=== PATIENT | female | born 1930 | race Caucasian/White ===

== ENCOUNTER → 2017-10-08 | Outpatient (CLI) | payer MEDICARE, OTHER ==
[~2017-10-08] MED LIST: ASPI325 PO; CALCIUM-FOLIC1 EACH PO; FISH1000 PO; HYDR1TAB94 PO; LEVSOD125 PO; VITAMIN D PO
== END | disposition home or self-care (01) ==
LOC: LAB 13:32
DX: N39.0 Urinary tract infection, site not specified (principal)
CPT/HCPCS: 87077; 87086; 87186

== ENCOUNTER → 2017-10-23 | Outpatient (CLI) | payer MEDICARE, OTHER | END | disposition home or self-care (01) | LOC: LAB 12:35 | DX: N39.0 Urinary tract infection, site not specified (principal) | CPT/HCPCS: 87077; 87086; 87186 ==

== ENCOUNTER → 2018-01-05 | Outpatient (CLI) | payer MEDICARE, OTHER | END | disposition home or self-care (01) | LOC: LAB 17:03 → LAB SHORT 17:03 | DX: N39.0 Urinary tract infection, site not specified (principal) | CPT/HCPCS: 87077; 87086; 87186 ==

== ENCOUNTER → 2018-09-10 | Outpatient (CLI) | payer MEDICARE, OTHER ==
[2018-09-14 15:07] LABS: HPV 16 Negative (Negative); HPV 18 Negative (Negative); HPV OTHER HR TYPES Negative (Negative)
== END | disposition home or self-care (01) ==
LOC: LAB 18:03 → LAB SHORT 18:03
PROVIDERS: Nurse Practitioner Women's Health
DX: Z12.4 Encounter for screening for malignant neoplasm of cervix (principal)
CPT/HCPCS: 87624; G0123

== ENCOUNTER → 2018-10-16 | Outpatient (CLI) | payer MEDICARE, OTHER | END | disposition home or self-care (01) | LOC: LAB SHORT 11:54 → LAB 11:54 | DX: N76.0 Acute vaginitis (principal) | CPT/HCPCS: 81001; 87070; 87077; 87086; 87186; 87205 ==

== ENCOUNTER → 2018-12-24 | Outpatient (CLI) | payer MEDICARE, OTHER | LOC: LAB 16:22 → LAB SHORT 16:22 | DX: S00.80XA Unspecified superficial injury of other part of head, initial encounter (principal); B00.1 Herpesviral vesicular dermatitis; L01.01 Non-bullous impetigo; L40.0 Psoriasis vulgaris; L21.8 Other seborrheic dermatitis; D48.5 Neoplasm of uncertain behavior of skin | CPT/HCPCS: 87529 ==

== ENCOUNTER → 2019-01-05 | Outpatient (CLI) | payer MEDICARE, OTHER ==
[2019-01-05 12:20] LABS: Source, Urine Catheter
[2019-01-05 13:30] LABS: Bilirubin, Urine Neg (Neg); Blood, Urine 5+ (Neg); Glucose Qualitative, Urine Neg (Neg); Ketones, Urine Neg (Neg); Leukocyte Esterase, Urine 3+ (Neg); Nitrite, Urine Neg (Neg); Protein, Urine 3+ (Neg); Specific Gravity, Urine 1.015 (1.003-1.022); Urobilinogen, Urine NORM (Normal)
[2019-01-05 13:59] LABS: Appearance, Urine Hazy (Clear); Color, Urine Yellow (P-Yellow)
[2019-01-05 14:04] LABS: Squamous Epithelial Cells Few /hpf (Few); White Blood Cells, Urine TNTC /hpf (0-5)
[2019-01-05 14:05] LABS: Bacteria Mod /hpf
== END | disposition home or self-care (01) ==
LOC: LAB 12:19 → LAB SHORT 12:19
PROVIDERS: Nurse Practitioner Women's Health
DX: R30.0 Dysuria (principal)
CPT/HCPCS: 81001; 87077; 87086; 87186

== ENCOUNTER → 2019-04-29 | Outpatient (CLI) | payer MEDICARE, OTHER ==
[2019-04-29 17:12] LABS: Source, Urine Catheter
[2019-04-29 17:45] LABS: Bilirubin, Urine Neg (Neg); Blood, Urine 2+ (Neg); Glucose Qualitative, Urine Neg (Neg); Ketones, Urine Neg (Neg); Leukocyte Esterase, Urine 3+ (Neg); Nitrite, Urine Neg (Neg); Protein, Urine 2+ (Neg); Specific Gravity, Urine 1.015 (1.003-1.022); Urobilinogen, Urine NORM (Normal)
[2019-04-29 18:29] LABS: Appearance, Urine Hazy (Clear); Color, Urine Yellow (P-Yellow)
[2019-04-29 18:32] LABS: Bacteria Mod /hpf; Squamous Epithelial Cells Not Seen /hpf (Few); White Blood Cells, Urine TNTC /hpf (0-5)
== END ==
LOC: LAB 15:43 → LAB SHORT 15:43
PROVIDERS: Nurse Practitioner Women's Health
DX: N89.8 Other specified noninflammatory disorders of vagina (principal); R30.0 Dysuria
CPT/HCPCS: 81001; 87070; 87077; 87086; 87186; 87205

== ENCOUNTER → 2019-05-13 | Outpatient (CLI) | payer MEDICARE, OTHER ==
[2019-05-13 12:32] LABS: Source, Urine Catheter
[2019-05-13 12:56] LABS: Bilirubin, Urine Neg (Neg); Blood, Urine 2+ (Neg); Glucose Qualitative, Urine Neg (Neg); Ketones, Urine Neg (Neg); Leukocyte Esterase, Urine Neg (Neg); Nitrite, Urine Neg (Neg); Protein, Urine Neg (Neg); Specific Gravity, Urine 1.005 (1.003-1.022); Urobilinogen, Urine NORM (Normal)
[2019-05-13 13:13] LABS: Appearance, Urine Clear (Clear); Color, Urine Yellow (P-Yellow)
[2019-05-13 13:20] LABS: Bacteria Rare /hpf; Squamous Epithelial Cells Few /hpf (Few)
== END | disposition home or self-care (01) ==
LOC: LAB SHORT 12:28 → LAB 12:28
PROVIDERS: Nurse Practitioner Women's Health
DX: N39.0 Urinary tract infection, site not specified (principal); R30.0 Dysuria
CPT/HCPCS: 81001; 87070; 87205

== ENCOUNTER → 2019-05-28 | Outpatient (CLI) | payer MEDICARE, OTHER ==
[2019-05-28 13:49] LABS: Source, Urine Catheter
[2019-05-28 15:06] LABS: Bilirubin, Urine Neg (Neg); Blood, Urine 2+ (Neg); Glucose Qualitative, Urine Neg (Neg); Ketones, Urine Neg (Neg); Leukocyte Esterase, Urine 3+ (Neg); Nitrite, Urine Neg (Neg); Protein, Urine 2+ (Neg); Urobilinogen, Urine NORM (Normal)
[2019-05-28 15:16] LABS: Appearance, Urine Hazy (Clear); Color, Urine Yellow (P-Yellow)
[2019-05-28 15:17] LABS: White Blood Cells, Urine TNTC /hpf (0-5)
[2019-05-28 15:18] LABS: Bacteria Few /hpf; Squamous Epithelial Cells Rare /hpf (Few); Transitional Epithelial Cells Few /hpf (0-Rare)
== END | disposition home or self-care (01) ==
LOC: LAB 13:45 → LAB SHORT 13:45
PROVIDERS: Nurse Practitioner Women's Health
DX: N95.2 Postmenopausal atrophic vaginitis (principal); R30.0 Dysuria
CPT/HCPCS: 81001; 87077; 87086; 87186